=== PATIENT | female | born 1960 | race Caucasian/White ===

== ENCOUNTER → 2019-04-05 | Outpatient (CLI) | payer BC | LOC: COL.RAD 09:13 | DX: M79.671 Pain in right foot (principal) | CPT/HCPCS: J3301; Q9967 ==

== ENCOUNTER → 2019-10-07 | Outpatient (CLI) | payer BC | LOC: COL.RAD 12:41 | DX: M79.671 Pain in right foot (principal) | CPT/HCPCS: J3301 ==